=== PATIENT | female | born 1955 | race Caucasian/White ===

== ENCOUNTER 2018-03-09 08:45 | Day surgery (SDC) | payer OTHER, BC ==
[2017-04-21 14:19] VITALS: BMI 25.2
[2018-03-09] MEDS ORDERED: Lactated Ringer's 500 ML IV ONE (08:58)
[2018-03-09] MEDS ORDERED: Midazolam 2 MG/2 ML VIAL ONE (09:25)
[2018-03-09] MEDS ORDERED: Propofol 10 mg/ml Inj (20 ML) ONE (09:25)
[2018-03-09 10:47] VITALS: O2SAT 100
[2018-03-09 11:06] VITALS: BP 98/64; PULSE 65; RESP 14; TEMP 96.5
== END 2018-03-09 11:45 | disposition home or self-care (01) ==
LOC: H.ENDO 08:45
PROVIDERS: ATTEND Internal Medicine Gastroenterology
DX: Z86.010 Personal history of colon polyps (principal); F32.9 Major depressive disorder, single episode, unspecified; K64.0 First degree hemorrhoids; D12.5 Benign neoplasm of sigmoid colon; K57.30 Diverticulosis of large intestine without perforation or abscess without bleeding; K29.50 Unspecified chronic gastritis without bleeding; K21.0 Gastro-esophageal reflux disease with esophagitis; K31.89 Other diseases of stomach and duodenum; R12 Heartburn
CPT/HCPCS: 43239; 45380; 88305; J2001; J2250; J2704; J3010; J7120